=== PATIENT | female | born 1975 | race Caucasian/White ===

== ENCOUNTER 2022-05-01 12:21 | Emergency (ER) | payer BC ==
[2022-05-01 12:34] VITALS: BP 104/69; PULSE 69; RESP 20; TEMP 98.1
--- NOTE | 2022-05-01 13:48 | ED ---
General Adult HPI - General Chief complaint: Recheck/Abnormal Lab/Rx Stated complaint: post op-abd pain Time Seen by Provider: 05/01/22 13:19 Source: patient Mode of arrival: ambulatory Limitations: no limitations - History of Present Illness Initial comments: Patient is a 47-year-old female presents the emergency room with complaints of sore throat and epigastric fullness with nausea. She denies any vomiting. She reports that she had workup completed by her primary care provider which showed a stable ultrasound of her throat and an upper GI study showing LAP-BAND in place with esophageal stoma narrowing causing her reflux. Her LAP- BAND was placed by Dr. Navarro. She contacted their office and she will schedule an appointment for tomorrow however she presented to the emergency room today as her stomach fullness and sore throat pain are significant. She reports having to have her LAP-BAND volume adjusted previously but has had not had any complications in many years. With the exception of GERD she has no other significant past medical history. She has been taking a PPI as prescribed by her primary care provider. - Related Data Allergies Allergy/AdvReac Type Severity Reaction Status Date / Time No Known Allergies Allergy Verified 05/01/22 12:35 Review of Systems ROS Statement: Those systems with pertinent positive or pertinent negative responses have been documented in the HPI. ROS Other: All systems not noted in ROS Statement are negative. Past Medical History Past Medical History: GERD/Reflux Additional Past Medical History / Comment(s): insomnia History of Any Multi-Drug Resistant Organisms: None Reported Past Surgical History: Tubal Ligation Additional Past Surgical History / Comment(s): lap band Past Psychological History: No Psychological Hx Reported Smoking Status: Never smoker Past Alcohol Use History: None Reported Past Drug Use History: None Reported General Exam Limitations: no limitations General appearance: alert, in no apparent distress Head exam: Present: atraumatic, normocephalic, normal inspection Eye exam: Present: normal appearance, PERRL, EOMI. Absent: scleral icterus, conjunctival injection, periorbital swelling ENT exam: Present: normal exam, mucous membranes moist Neck exam: Present: normal inspection Respiratory exam: Absent: respiratory distress, accessory muscle use GI/Abdominal exam: Present: soft, distended. Absent: tenderness, guarding, rebound, rigid Rectal exam: Present: deferred Extremities exam: Present: normal inspection. Absent: pedal edema, joint swelling Back exam: Present: normal inspection Neurological exam: Present: alert, oriented X3, CN II-XII intact Psychiatric exam: Present: normal affect, normal mood Skin exam: Present: warm, dry, intact, normal color. Absent: rash Course Vital Signs 05/01/22 12:28 Temperature 98.1 F Pulse Rate 69 Respiratory 20 Rate Blood Pressure 104/69 O2 Sat by Pulse 100 Oximetry Medical Decision Making - Medical Decision Making Recent ultrasound and upper GI studies. No indication for other testing at this time. No indication for laboratory studies in the setting of lack of infectious process and vomiting. Dr. Ohara and notified of patient's presenting to the emergency department. He reports that he will see the patient in the emergency room for fluid removal from her lap band. She denies any anti-medics or analgesic needs at this time. Patient tolerated removal of fluid from lap band well by Dr. Ohara and is tolerating food and fluid intake orally without any nausea or vomiting. Will discharge home with follow-up with her primary care provider and Dr. Ohara per his recommendations. Case discussed with Dr. Butler. Disposition Clinical Impression: Gastric reflux, Hx of laparoscopic gastric banding Disposition: HOME SELF-CARE Condition: Stable Instructions (If sedation given, give patient instructions): GERD (Gastroesophageal Reflux Disease) in Children (ED) Additional Instructions: Please follow-up with Dr. Ohara and your primary care provider. Continue to progress diet as tolerated. Continue taking heartburn medication as prescribed by her primary care provider. Please return to the Emergency Department if symptoms worsen or any other concerns. Is patient prescribed a controlled substance at d/c from ED?: No Referrals: Nonstaff,Physician [Primary Care Provider] - 1-2 days Time of Disposition: 14:31
--- NOTE | 2022-05-01 14:37 | P.GSCN ---
History of Present Illness Consult date: 05/01/22 History of present illness: CHIEF COMPLAINT: Dysphagia HISTORY OF PRESENT ILLNESS: This is a 47-year-old female with a known history of lap band placed in 2008. She had a 70 pound weight loss. Patient has been having reflux symptoms and dysphagia. Patient had an upper GI showing lap band in place with esophageal stoma narrowing causing her reflux. Patient complaining of stomach fullness. She denies any nausea or vomiting. Patient seen in ER with Dr. gunter. PAST MEDICAL HISTORY: See list. PAST SURGICAL HISTORY: See list. MEDICATIONS: See list. ALLERGIES: See list. SOCIAL HISTORY: No illicit drug use. REVIEW OF SYSTEMS: CONSTITUTIONAL: Denies fever or chills. HEENT: Denies blurred vision, vision changes, or eye pain. Denies hemoptysis CARDIOVASCULAR: Denies chest pain or pressure. RESPIRATORY: No shortness of breath. GASTROINTESTINAL: See HPI for pertinent findings HEMATOLOGIC: Denies bleeding disorders. GENITOURINARY: Denies any blood in urine or increased urinary frequency. SKIN: Denies pruitis. Denies rash. PHYSICAL EXAM: VITAL SIGNS: Reviewed GENERAL: Well-developed in no acute distress. HEENT: No sclera icterus. Extraocular movements grossly intact. Moist buccal mucosa. Head is atraumatic, normocephalic. No nasal drainage. ABDOMEN: Soft. Nondistended. NEUROLOGIC: Alert and oriented. Cranial nerves II through XII grossly intact. LABORATORY DATA: No labs IMAGING: ASSESSMENT: 1. Dysphagia and reflux 2. History of lap band procedure PLAN: -Patient had 5.5 mL removed from lap band by Dr. gunter in the ER -Patient tolerated drinking water -We'll have nurse give patient an applesauce. If patient tolerates drinking and eating applesauce she can be discharged from surgical standpoint. -Patient to [facility]-up [facility] 2 weeks Physician Wedding Decorator note has been reviewed by physician. Signing provider agrees with the documented findings, assessment, and plan of care. Past Medical History Past Medical History: GERD/Reflux Additional Past Medical History / Comment(s): insomnia History of Any Multi-Drug Resistant Organisms: None Reported Past Surgical History: Tubal Ligation Additional Past Surgical History / Comment(s): lap band Past Psychological History: No Psychological Hx Reported Smoking Status: Never smoker Past Alcohol Use History: None Reported Past Drug Use History: None Reported Medications and Allergies Allergies Allergy/AdvReac Type Severity Reaction Status Date / Time No Known Allergies Allergy Verified 05/01/22 12:35 Surgical - Exam Vital Signs Temp Pulse Resp BP Pulse Ox 98.1 F 69 20 104/69 100 05/01/22 12:28 05/01/22 12:28 05/01/22 12:28 05/01/22 12:28 05/01/22 12:28
== END 2022-05-01 14:45 | disposition home or self-care (01) ==
LOC: EC 12:21
DX: K21.9 Gastro-esophageal reflux disease without esophagitis (principal); Z98.84 Bariatric surgery status
CPT/HCPCS: 99283; 99284

== ENCOUNTER → 2022-08-05 | Outpatient (CLI) | payer BC ==
[2022-08-05 13:21] VITALS: BP 123/82; PULSE 86; TEMP 97.8; BMI 38.3
--- NOTE | 2022-08-05 13:36 | P.HPBAR ---
Bariatric H&P - History & Physicial H&P Date: 08/05/22 History & Physicial: Visit/CC: lap band follow up Patient initial contact: Initial weight: Initial weight in pounds: Height: 5 ft 5.5 in Initial BMI: Last weight: Current weight: 106.141 kg Current weight in pounds: 234.00 Current BMI: 38.3 [place] body weight (based on NIH guidelines): 57.833 kg Excess body weight loss: The patient is a 47 year-old F who presents for Bariatric Assessment. This a 47-year-old female who had her LAP-BAND emptied April. The patient wishes convert sleeve gastrectomy. She's had chronic issues with dysphagia and GERD with her LAP-BAND. She is unable tolerate a fill. Past Medical History Past Medical History: GERD/Reflux Additional Past Medical History / Comment(s): insomnia History of Any Multi-Drug Resistant Organisms: None Reported Past Surgical History: Tubal Ligation Additional Past Surgical History / Comment(s): lap band Smoking Status: Never smoker Surgical - Exam Vital Signs Temp Pulse BP 97.8 F 86 123/82 08/05/22 13:17 08/05/22 13:17 08/05/22 13:17 - General well developed, well nourished, no distress - Eyes PERRL - ENT normal pinna - Neck no masses - Respiratory normal expansion - Cardiovascular Rhythm: regular - Abdomen Abdomen: soft, non tender Bariatric Assessment & Plan Plan: Dysphagia and GERD with LAP-BAND. Patient's band will not be adjusted. We will attempt to obtain insurance authorization for conversion sleeve gastrectomy due to chronic dysphagia and GERD. Bariatric Checklist Checklist: Plan: Checklist: EGD: 1. Hiatal hernia: 2. H. Pylori: HgbA1c: Vitamin D: Smoking: Primary care physician referral: Psychiatry clearance: Cardiology clearance: Sleep study: Diet journal: VTE risk score: VTE risk level: Rehab needs at discharge:
== END ==
LOC: BARWHC3 12:59
PROVIDERS: ATTEND Surgery
DX: Z09 Encounter for follow-up examination after completed treatment for conditions other than malignant neoplasm (principal); Z98.84 Bariatric surgery status; E66.01 Morbid (severe) obesity due to excess calories; Z68.38 Body mass index [BMI] 38.0-38.9, adult
CPT/HCPCS: 99211

== ENCOUNTER 2022-11-25 07:50 | Observation (INO) | payer BC ==
[~2022-11-25 07:50] MED LIST: DEXAMETHASONE SOD PHOSPHATE 4 MG/ML 1 ML VIAL IV ONE; ENOXAPARIN 40 MG/0.4 ML SYRINGE SQ PRN; LACTATED RINGERS 1,000 ML IV SCH; LIDOCAINE 1% (10MG/ML) FOR IV START INTRADERMA PRN; SCOPOLAMINE 1 MG/72 HR PATCH TRANSDERM ONE
[2022-11-25] MEDS: ONDANSETRON 4 MG/2 ML VIAL IVP PRN ×2 (08:52→12:32)
--- NOTE | 2022-11-25 10:17 | P.GSHP ---
History of Present Illness H&P Date: 11/25/22 Chief Complaint: GERD, dysphagia, morbid obesity This is a 47-year-old female who presents today for removal of LAP-BAND conversion to sleeve gastrectomy. Patient's had issues with chronic dysphagia and GERD related to her LAP-BAND. Past Medical History Past Medical History: GERD/Reflux Additional Past Medical History / Comment(s): insomnia History of Any Multi-Drug Resistant Organisms: None Reported Past Surgical History: Bariatric Surgery, Tubal Ligation Additional Past Surgical History / Comment(s): lap band Past Anesthesia/Blood Transfusion Reactions: No Reported Reaction Past Psychological History: No Psychological Hx Reported Smoking Status: Never smoker Past Alcohol Use History: Occasional Past Drug Use History: None Reported - Past Family History Mother Family Medical History: Coronary Artery Disease (CAD), Diabetes Mellitus, Hypertension Additional Family Medical History / Comment(s): CABG Father Family Medical History: Coronary Artery Disease (CAD), Diabetes Mellitus, Hypertension Additional Family Medical History / Comment(s): CABG Medications and Allergies Home Medications Medication Instructions Recorded Confirmed Type FLUoxetine HCL [PROzac] 10 mg PO DAILY 11/11/22 11/18/22 History Zolpidem [Ambien] 5 mg PO HS PRN 11/11/22 11/18/22 History Allergies Allergy/AdvReac Type Severity Reaction Status Date / Time No Known Allergies Allergy Verified 11/18/22 11:01 Surgical - Exam Vital Signs Temp Pulse Resp BP Pulse Ox 97 F L 73 20 132/90 97 11/25/22 08:25 11/25/22 08:25 11/25/22 08:25 11/25/22 08:25 11/25/22 08:25 - General well developed, well nourished, no distress - Eyes PERRL - Neck no masses - Respiratory normal expansion - Cardiovascular Rhythm: regular - Abdomen Abdomen: soft, non tender - Genitourinary normal external genitalia - Rectum Rectum: normal sphincter tone - Integumentary no rash - Neurologic normal coordination, normal sensation Assessment and Plan Assessment: Dysphagia due to LAP-BAND system. Morbid obesity, BMI 38. We'll perform removal of LAP-BAND conversion to sleeve gastrectomy.
[2022-11-25] MEDS ORDERED: PHENYLEPHRINE-0.9% NACL SYG 1,000 MCG/10 ML SYRINGE ONE (10:35)
[2022-11-25] MEDS ORDERED: LIDOCAINE 2% INJ 20 MG/ML (2 ML VIAL) ONE (10:35)
[2022-11-25] MEDS ORDERED: fentaNYL (PF) 50 MCG/ML 2 ML AMP ONE (10:35)
[2022-11-25] MEDS ORDERED: GLYCOPYRROLATE 0.2 MG/ML 2 ML VIAL ONE (10:35)
[2022-11-25] MEDS ORDERED: PROPOFOL 10 MG/ML 20 ML VIAL IV ONE (10:35)
[2022-11-25] MEDS ORDERED: ROCURONIUM 10 MG/ML (5 ML VIAL) IV ONE (10:35)
[2022-11-25] MEDS ORDERED: KETAMINE 10 MG/ML 20 ML VIAL ONE (10:35)
[2022-11-25] MEDS ORDERED: MIDAZOLAM 2 MG/2 ML VIAL ONE (10:35)
[2022-11-25] MEDS ORDERED: NEOSTIGMINE 1 MG/ML 10 ML VIAL ONE (10:35)
[2022-11-25] MEDS ORDERED: BUPIVACAIN-EPI 0.25%-1:200,000 30 ML VIAL SQ ONE (11:08)
[2022-11-25] MEDS ORDERED: LACTATED RINGERS 1,000 ML IV ONE (12:01)
--- NOTE | 2022-11-25 12:19 | P.OP ---
Date of Procedure: 11/25/22 Preoperative Diagnosis: Morbid obesity Postoperative Diagnosis: Morbid obesity, BMI 37 Procedure(s) Performed: Laparoscopic removal of LAP-BAND device Laparoscopic sleeve gastrectomy Anesthesia: DEACON Surgeon: Wyatt Ohara Estimated Blood Loss (ml): 25 Pathology: other (Stomach) Condition: stable Disposition: PACU Description of Procedure: The patient was placed on the operating room table in the supine position. She received general anesthesia and then was placed in dorsal lithotomy position. Her abdomen was prepped and draped in sterile fashion. The skin incision sites were anesthetized 1% local Xylocaine. And then the skin was incised with an 11 blade in the left lateral position. Using a blade less trocar under direct visualization the peritoneal cavity was entered. The abdomen was insufflated and then a 5 mm laparoscope was placed into the peritoneal cavity. A 5 mm trocar was placed in the right epigastric, and right lateral position. A 15 mm trocar was placed in the supra-umbilical position and another 5 mm trocar was placed in the left lateral position. The LAP-BAND port was then dissected free and sent to pathology. The LAP-BAND device was then dissected free from around stomach the anterior gastric wall plication was taken down with sharp dissection. The LAP-BAND device and cut and withdrawn from around stomach. Care was taken to identify and preserve the gastric wall. There was no injury to the stomach was seen. The left lateral lobe of the liver was retracted. The stomach was visualized. The greater curvature of the stomach was then dissected using the Harmonic scissors. The dissection occurred approximately 5 cm from the pylorus to the level of the left omid. There was no hiatal hernia seen. At this point a 40- Malay bougie dilator was placed the oropharynx and passed into the esophagus and into the stomach by the STRATIGRAPHER. The sleeve gastrectomy was performed by using the powered echelon stapler with a seam guard buttress material. Sequential firings of the stapler were performed. The gastric remnant was then brought out through the 15 mm trocar site. The dilator was withdrawn. And a orogastric tube was replaced into the stomach. The stomach was insufflated with 200 mL of methylene blue normal saline. There was no evidence of extravasation. The abdomen was irrigated there is no bleeding seen. The Vasiliy-Sheridan device was used to close the 15 mm trocar with 0 Vicryl. Skin was closed with interrupted 3-0 Monocryl sutures once the trochars withdrawn. Dermabond dressing was applied. Patient was sent to recovery in stable condition.
[2022-11-25] MEDS ORDERED: SIMETHICONE 40 MG/0.6 ML DROPS 2,000 MG/30 ML BOTTLE PO PRN (12:20)
[2022-11-25] MEDS ORDERED: NALOXONE 0.4 MG/ML 1 ML VIAL IV PRN (12:20)
[2022-11-25] MEDS ORDERED: diphenhydrAMINE 50 MG/ML 1 ML VIAL IVP PRN (12:20)
[2022-11-25] MEDS ORDERED: HYDROmorphone 1 MG/ML 1 ML SYRINGE IVP PRN (12:20)
[2022-11-25] MEDS ORDERED: ACETAMINOPHEN IV (For NPO) 1,000 MG in EMPTY BAG 1 BAG IVPB ONE (12:20)
[2022-11-25] MEDS: HYDROmorphone 0.5 MG/0.5 ML SYRINGE IVP PRN ×5 (12:32→21:20)
[2022-11-25] MEDS: 0.9% NACL WITH KCL 20 MEQ/L 1,000 ML IV SCH ×3 (13:47→23:27)
[2022-11-25] MEDS: ALBUTEROL HFA INHALER INHALATION SCH ×2 (15:52→20:28)
[2022-11-25] MEDS ORDERED: ALBUTEROL NEBULIZED 2.5 MG/3 ML INHALATION SCH (16:00)
[2022-11-25] MEDS: KETOROLAC 15 MG/ML 1 ML VIAL IVP SCH ×2 (17:46→23:27)
[2022-11-25] MEDS: ENOXAPARIN 40 MG/0.4 ML SYRINGE SQ SCH (23:29)
--- NOTE | 2022-11-25 23:45 | P.CONS ---
History of Present Illness - Reason for Consult Consult date: 11/25/22 Medical management - Chief Complaint Status post sleeve gastrectomy - History of Present Illness Patient is a 47-year-old female with known history of GERD, depression and obesity with a BMI 37.6 and prior history of bariatric surgery was admitted to the hospital for removal of lap band, conversion to sleeve gastrectomy. Patient tolerated the procedure very well. Currently transferred to medical floor. Denies any complaints of chest pain or shortness of breath. No nausea or vomiting. Pain is controlled. No cough or sputum production. Postoperatively blood pressure 97/62 pulse 74 and pulse ox 92% on room air. Laboratory data is not anticoagulant this time. Review of Systems Constitutional: Patient denies any fever or chills . no Generalized weakness. Abdomen: Patient denied any nausea or vomiting or abd. pain Cardiovascular: Patient denies any chest pain or short of breath no palpitations. Respiratory: patient denied any cough . no sputum production. No shortness of breath Neurologic: Patient denied any numbness or tingling headache. Musculoskeletal: Patient denies any complaints of joint swelling or deformity. Skin: Negative Psychiatric: Negative Endocrine: No heat or cold intolerance. No recent weight gain. Genitourinary: No dysuria or hematuria. All other 14 point ROS negative except the above Past Medical History Past Medical History: GERD/Reflux Additional Past Medical History / Comment(s): insomnia History of Any Multi-Drug Resistant Organisms: None Reported Past Surgical History: Bariatric Surgery, Tubal Ligation Additional Past Surgical History / Comment(s): lap band Past Anesthesia/Blood Transfusion Reactions: No Reported Reaction Past Psychological History: No Psychological Hx Reported Smoking Status: Never smoker Past Alcohol Use History: Occasional Past Drug Use History: None Reported - Past Family History Mother Family Medical History: Coronary Artery Disease (CAD), Diabetes Mellitus, Hypertension Additional Family Medical History / Comment(s): CABG Father Family Medical History: Coronary Artery Disease (CAD), Diabetes Mellitus, Hypertension Additional Family Medical History / Comment(s): CABG Medications and Allergies Home Medications Medication Instructions Recorded Confirmed Type FLUoxetine HCL [PROzac] 10 mg PO DAILY 11/11/22 11/18/22 History Zolpidem [Ambien] 5 mg PO HS PRN 11/11/22 11/18/22 History Allergies Allergy/AdvReac Type Severity Reaction Status Date / Time No Known Allergies Allergy Verified 11/18/22 11:01 Physical Exam Vitals: Vital Signs Temp Pulse Resp BP Pulse Ox 11/25/22 13:31 60 16 125/62 100 11/25/22 13:20 62 16 127/61 100 11/25/22 13:05 63 16 141/68 11/25/22 12:49 65 16 140/65 100 11/25/22 12:34 64 16 122/58 100 11/25/22 12:19 97.4 F L 77 16 134/67 100 11/25/22 08:25 97 F L 73 20 132/90 97 Intake and Output 11/24/22 11/25/22 11/25/22 22:59 06:59 14:59 Intake Total 1850 Output Total 25 Balance 1825 Intake: IV 1850 Output: Estimated Blood Loss 25 Other: Weight 102.4 kg PHYSICAL EXAMINATION: Patient is lying in the bed comfortably, no acute distress, awake alert and oriented.. HEENT: Normocephalic. Neck is supple. Pupils reactive. Nostrils clear. Oral cavity is moist. Neck reveals no JVD, carotid bruits, or thyromegaly. CHEST EXAMINATION: Trachea is central. Symmetrical expansion. Lung yeh clear to auscultation and percussion. CARDIAC: Normal S1, S2 with no gallops. No murmurs ABDOMEN: Soft. Bowel sounds present. Nontender. No organomegaly. No abdominal bruits. Extremities: reveal no edema. No clubbing or cyanosis Neurologically awake, alert, oriented x3 with well-coordinated movements. No focal deficits noted Skin: No rash or skin lesions. Psychiatric: Coperative. Nonsuicidal, Musculoskeletal: No joint swelling or deformity. Normal range of motion. Assessment and Plan Assessment: S/p laparoscopic conversion to sleeve gastrectomy. Postoperative day 0 History of bariatric surgery with lap band Anxiety/depression and insomnia GERD Obesity BMI 37.6 DVT prophylaxis currently on Lovenox subcu every 12 Plan: Patient will be continued on IV hydration and started on bariatric clear liquid diet. Pain management and DVT prophylaxis Encourage incentive spirometry. Monitor blood pressure closely. Follow-up CBC and BMP tomorrow. Further recommendations based on the clinical course. Thank you for your consult. Time with Patient: Greater than 30
[2022-11-26] MEDS: HYDROmorphone 0.5 MG/0.5 ML SYRINGE IVP PRN ×2 (02:04→09:13)
[2022-11-26] MEDS: KETOROLAC 15 MG/ML 1 ML VIAL IVP SCH ×2 (05:59→12:28)
[2022-11-26] MEDS ORDERED: 1: THIAMINE 100 MG, FOLIC ACID 1 MG in 0.9% NACL WITH KCL 20 MEQ/L 1,000 ML 2: 0.9% NAC IVPB SCH (08:00)
[2022-11-26 08:36] VITALS: BP 111/76; PULSE 60; RESP 17; TEMP 98.5
[2022-11-26] MEDS: ACETAMINOPHEN IV (For NPO) 1,000 MG in EMPTY BAG 1 BAG IVPB SCH ×2 (08:53→12:27)
[2022-11-26] MEDS: ENOXAPARIN 40 MG/0.4 ML SYRINGE SQ SCH (08:54)
[2022-11-26] MEDS ORDERED: FLUoxetine HCL 10 MG CAP PO SCH (09:00)
[2022-11-26] MEDS ORDERED: PANTOPRAZOLE 40 MG/10 ML VIAL IV SCH (09:00)
[2022-11-26] MEDS ORDERED: MULTIVITAMINS, THERA 1 EACH TAB PO SCH (09:00)
[2022-11-26] MEDS: ALBUTEROL HFA INHALER INHALATION SCH ×2 (09:11→12:09)
[2022-11-26 09:13] LABS: Basophils # (A) 0.01 X 10*3/uL (0.00-0.10); Basophils % (A) 0.1 %; Eosinophils # (A) 0 X 10*3/uL (0.04-0.35); Eosinophils % (A) 0 %; Immature Grans, Automated 0.4 %; Lymphocytes # (A) 1.48 X 10*3/uL (0.90-5.00); Lymphocytes % (A) 17.8 %; MCH 30.1 pg (27.0-32.0); MCHC 32.4 g/dL (32.0-37.0); MCV 92.9 fL (80.0-97.0); Mean Platelet Volume 11.4 fL (9.5-12.2); Monocytes # (A) 0.53 X 10*3/uL (0.20-1.00); Monocytes % (A) 6.4 %; NRBC Per 100 WBC 0 /100 WBCS (0.0-0.0); Neutrophils # (A) 6.25 X 10*3/uL (1.80-7.70); Neutrophils % (A) 75.3 %; Platelet Count 262 X 10*3/uL (140-440); RBC 3.66 X 10*6/uL (4.10-5.20); RDW 13.1 % (11.5-14.5)
[2022-11-26 09:33] LABS: African American GFR (CKD) 117.9 (60.0-200.0); Anion Gap 12.6 mmol/L (10.00-18.00); BUN/Creat Ratio 17.43 Ratio (12.00-20.00); Blood Urea Nitrogen 12.2 mg/dL (9.0-27.0); Calcium 8.9 mg/dL (8.7-10.3); Carbon Dioxide 20.4 mmol/L (20.0-27.5); Magnesium 1.8 mg/dL (1.5-2.4); Non-African American GFR(CKD) 101.7 (60.0-200.0); Phosphorus 3.3 mg/dL (2.4-5.1); Potassium 4.7 mmol/L (3.5-5.5)
--- NOTE | 2022-11-26 10:28 | P.DS ---
Providers Expected date of discharge: 11/26/22 Attending physician: Wyatt Ohara Consults: 11/25/22 12:20 Consult Physician Routine Consulting Provider: Nabila Miller Consult Reason/Comments: Medical management Do you want consulting provider notified?: Yes Primary care physician: Stated None Hospital Course: Discharge diagnosis 1. Morbid obesity Hospital course This is a 47-year-old female with a known history of morbid obesity. She is status post lap is Removal of lap band device and laparoscopic Sleeve gastrectomy. Patient reports that her pain is controlled. She is tolerating liquids. Denies any nausea or vomiting. She has been up and ambulating. She is having flatus. She is afebrile. She is stable for discharge. Please refer to chart for any further details. Physician Agate Setter note has been reviewed by physician. Signing provider agrees with the documented findings, assessment, and plan of care. Patient Condition at Discharge: Stable Plan - Discharge Summary Discharge Rx Participant: Yes New Discharge Prescriptions: New bisacodyL [Dulcolax] 5 mg PO DAILY PRN #10 tab PRN Reason: Constipation Simethicone 40 mg/0.6 ml Drops [Mylicon Drops] 40 mg PO PCHS PRN #30 ml PRN Reason: Gas Ondansetron Odt [Zofran Odt] 4 mg PO Q8HR PRN #9 tab PRN Reason: Nausea Omeprazole [PriLOSEC] 40 mg PO DAILY #30 cap HYDROcodone/APAP 5-325MG [[place] 5-325] 1 tab PO Q6HR PRN 2 Days #5 tab PRN Reason: Pain Continue Zolpidem [Ambien] 5 mg PO HS PRN PRN Reason: Insomnia FLUoxetine HCL [PROzac] 10 mg PO DAILY Discharge Medication List FLUoxetine HCL [PROzac] 10 mg PO DAILY 11/11/22 [History] Zolpidem [Ambien] 5 mg PO HS PRN 11/11/22 [History] HYDROcodone/APAP 5-325MG [[place] 5-325] 1 tab PO Q6HR PRN 2 Days #5 tab 11/26/22 [Rx] Omeprazole [PriLOSEC] 40 mg PO DAILY #30 cap 11/26/22 [Rx] Ondansetron Odt [Zofran Odt] 4 mg PO Q8HR PRN #9 tab 11/26/22 [Rx] Simethicone 40 mg/0.6 ml Drops [Mylicon Drops] 40 mg PO PCHS PRN #30 ml 11/26/22 [Rx] bisacodyL [Dulcolax] 5 mg PO DAILY PRN #10 tab 11/26/22 [Rx] [facility]ment([facility] [facility] [place] [place] [facility] [place] [facility] Patient Instructions/Handouts: *Surgery [facility] - Scopalamine Patch Instructions Activity/Diet/Wound Care/Special Instructions: No driving while taking [place] No lifting over 10 pounds Shower daily. No soaking or tub baths for 2 weeks Very light activity until you are reevaluated at your follow up appointment with your surgeon No straws or carbonated beverages Continue liquid diet Discharge Disposition: HOME SELF-CARE
[2022-11-26 14:18] VITALS: BMI 37.5
--- NOTE | 2022-11-26 20:50 | P.PN ---
Subjective Progress Note Date: 11/26/22 Reason for Consult Consult date: 11/25/22 Medical management - Chief Complaint Status post sleeve gastrectomy - History of Present Illness Patient is a 47-year-old female with known history of GERD, depression and obesity with a BMI 37.6 and prior history of bariatric surgery was admitted to the hospital for removal of lap band, conversion to sleeve gastrectomy. Patient tolerated the procedure very well. Currently transferred to medical floor. Denies any complaints of chest pain or shortness of breath. No nausea or vomiting. Pain is controlled. No cough or sputum production. Postoperatively blood pressure 97/62 pulse 74 and pulse ox 92% on room air. Laboratory data is not anticoagulant this time. 11/26/2022 Patient is seen in follow up today and has just returned from walking the unit multiple times. Patient reports some bloating and tolerating clear liquid diet. Denies nausea or vomiting. Has incentive spirometer at the bedside and has been using frequently she reports. Patient is afebrile and denies chest pain or shortness of breath other than some mild chest and abdomen discomfort with position changes. Recommend abdominal binder. Encouraged increased activity as tolerated. Patient reports she may go home today. Review of systems: Constitutional: No reports of fatigue, fever, or chills Cardiovascular: No reports of chest pain or palpitations Respiratory: No reports of shortness of breath or cough GI: No reports of nausea, vomiting, or diarrhea, reports no gas or bowel movemen t. patient reports bloating : No reports of dysuria or retention Neurovascular: no reports of weakness Physical exam: Patient is lying in the bed comfortably, no acute distress, awake alert and oriented.. HEENT: Normocephalic. Neck is supple. Pupils reactive. Nostrils clear. Oral cavity is moist. Neck reveals no JVD, carotid bruits, or thyromegaly. CHEST EXAMINATION: Trachea is central. Symmetrical expansion. Lung yeh clear to auscultation and percussion. CARDIAC: Normal S1, S2 with no gallops. No murmurs ABDOMEN: Soft. Bowel sounds present. Nontender. No organomegaly. No abdominal bruits. Extremities: reveal no edema. No clubbing or cyanosis Neurologically awake, alert, oriented x3 with well-coordinated movements. No focal deficits noted Skin: No rash or skin lesions. Psychiatric: Cooperative. Non-suicidal, Musculoskeletal: No joint swelling or deformity. Normal range of motion. Assessment: S/p laparoscopic conversion to sleeve gastrectomy. Postoperative day 1 History of bariatric surgery with lap band Anxiety/depression and insomnia GERD Obesity BMI 37.6 DVT prophylaxis currently on Lovenox subcu every 12 Plan: Patient has been on continued on IV hydration and bariatric clear liquid diet. Tolerating Patient reports not passing gas or having bowel movement Pain management and DVT prophylaxis per surgery Encourage incentive spirometry use at least 10 times per hour while awake. Encouraged patient to bring home Patient is medically stable and will be discharged later today Thank you kindly for this consultation and we will continue to follow during hospitalization The impression and plan of care has been dictated by Silvia Christine, Nurse Practitioner as directed. Dr. Dank MD I have performed a history and examination and MDM of this patient, discussed the same with the dictator, and agree with the dictator's assessment and plan as written ,documented as a scribe. Based on total visit time, I have performed more than 50% of the visit. Objective - Vital Signs Vital signs: Vital Signs Temp 98.5 F 11/26/22 08:15 Pulse 60 11/26/22 08:15 Resp 17 11/26/22 08:15 BP 111/76 11/26/22 08:15 Pulse Ox 100 11/26/22 09:11 FiO2 Intake & Output 11/25/22 11/26/22 11/26/22 18:59 06:59 18:59 Intake Total 1850 Output Total 25 Balance 1825 Weight 102.4 kg Intake: IV 1850 Output: Estimated Blood Loss 25 Other: # Voids 0 1 - Labs CBC & Chem 7: 11/26/22 04:16 11/26/22 04:16 Labs: Abnormal Lab Results - Last 24 Hours (Table) 11/26/22 Range/Units 04:16 RBC 3.66 L (4.10-5.20) X 10*6/uL Hgb 11.0 L (12.0-15.0) g/dL Hct 34.0 L (37.2-46.3) % Eosinophils # 0 L (0.04-0.35) X 10*3/uL
== END 2022-11-26 14:27 | disposition home or self-care (01) ==
LOC: OR 07:50 → 4SSUR 12:07 → OR 11-26 06:48 → 4SSUR 11-26 14:27 → OR 11-26 14:27
PROVIDERS: ADMIT Surgery; ATTEND Surgery
DX: Z45.89 Encounter for adjustment and management of other implanted devices (principal); E66.01 Morbid (severe) obesity due to excess calories; Z68.37 Body mass index [BMI] 37.0-37.9, adult; K31.7 Polyp of stomach and duodenum; K29.50 Unspecified chronic gastritis without bleeding; G47.00 Insomnia, unspecified; K21.9 Gastro-esophageal reflux disease without esophagitis; Z98.84 Bariatric surgery status; Z98.51 Tubal ligation status; Z83.3 Family history of diabetes mellitus; Z82.49 Family history of ischemic heart disease and other diseases of the circulatory system; Z79.899 Other long term (current) drug therapy
CPT/HCPCS: 43774; 94640 ×4; 94760; 97161; 97165; 80048; 83735; 84100; 85025; 88307; G0378; J2250; J1100; J2710; J0690 ×2; J2405; J1650 ×2; J3010; J1170 ×3; J0131; J1885 ×2; J2370; J2704; C9113; J2001

== ENCOUNTER → 2022-11-29 | Outpatient (CLI) | payer BC ==
[2022-11-29 10:55] VITALS: BP 113/77; PULSE 81; TEMP 97.9; BMI 36.3
== END ==
LOC: BARWHC3 10:36
PROVIDERS: ATTEND Surgery
DX: E66.01 Morbid (severe) obesity due to excess calories (principal)
CPT/HCPCS: 99211

== ENCOUNTER → 2022-12-30 | Outpatient (CLI) | payer BC ==
[2022-12-30 14:25] VITALS: BP 115/74; PULSE 68; TEMP 98.1; BMI 34.4
--- NOTE | 2022-12-30 15:51 | P.HPBAR ---
Bariatric H&P - History & Physicial H&P Date: 12/30/22 History & Physicial: Visit/CC: sleeve F/U Patient initial contact: Initial weight: Initial weight in pounds: Height: 5 ft 5.5 in Initial BMI: Last weight: Current weight: 95.254 kg Current weight in pounds: 210.00 Current BMI: 34.4 [place] body weight (based on NIH guidelines): 57.833 kg Excess body weight loss: The patient is a 47 year-old F who presents for Bariatric Assessment. Patient presents today for sleeve gastrectomy follow-up. She's had some minimal GERD. She's doing well. Past Medical History Past Medical History: GERD/Reflux Additional Past Medical History / Comment(s): insomnia History of Any Multi-Drug Resistant Organisms: None Reported Past Surgical History: Bariatric Surgery, Tubal Ligation Additional Past Surgical History / Comment(s): lap band- removed and conversion to gastric sleeve 11/25/22. Past Psychological History: No Psychological Hx Reported Smoking Status: Never smoker Past Alcohol Use History: None Reported Past Drug Use History: None Reported Surgical - Exam Vital Signs Temp Pulse BP 98.1 F 68 115/74 12/30/22 14:22 12/30/22 14:22 12/30/22 14:22 - General well developed, well nourished, no distress - Eyes PERRL - ENT normal pinna, normal nares - Neck no masses - Respiratory normal expansion - Cardiovascular Rhythm: regular - Abdomen Abdomen: soft, non tender Bariatric Assessment & Plan Plan: Status post sleeve gastrectomy. Patient's a well. She'll follow-up in 4 weeks. Bariatric Checklist Checklist: Plan: Checklist: EGD: 1. Hiatal hernia: 2. H. Pylori: HgbA1c: Vitamin D: Smoking: Primary care physician referral: Psychiatry clearance: Cardiology clearance: Sleep study: Diet journal: VTE risk score: VTE risk level: Rehab needs at discharge:
[2022-12-30 21:46] LABS: HCT 38.5 % (37.2-46.3); HGB 12.2 g/dL (12.0-15.0); MCHC 31.7 g/dL (32.0-37.0); MCV 94.6 fL (80.0-97.0); Mean Platelet Volume 12.4 fL (9.5-12.2); NRBC Per 100 WBC 0 /100 WBCS (0.0-0.0); Platelet Count 236 X 10*3/uL (140-440); RBC 4.07 X 10*6/uL (4.10-5.20); WBC 4.02 X 10*3/uL (4.50-10.00)
[2022-12-31 03:21] LABS: % Iron Saturation 14.66 (12.00-45.00); Magnesium 2.2 mg/dL (1.5-2.4)
[2022-12-31 03:26] LABS: African American GFR (CKD) 111.2 (60.0-200.0); Albumin 4.4 g/dL (3.8-4.9); Albumin/Globulin Ratio 1.55 (1.60-3.17); BUN/Creat Ratio 15.92 Ratio (12.00-20.00); Blood Urea Nitrogen 11.7 mg/dL (9.0-27.0); Calcium 9.5 mg/dL (8.7-10.3); Carbon Dioxide 19.9 mmol/L (20.0-27.5); Globulin 2.8 g/dL (1.6-3.3); Non-African American GFR(CKD) 95.9 (60.0-200.0); Potassium 4.6 mmol/L (3.5-5.5); Total Bilirubin 0.3 mg/dL (0.30-1.20); Total Protein 7.2 g/dL (6.2-8.2)
[2023-01-01 06:41] LABS: Vitamin A 44 ug/dL (38-106)
== END ==
LOC: BARWHC3 13:35
PROVIDERS: ATTEND Surgery
DX: E66.01 Morbid (severe) obesity due to excess calories (principal); K21.9 Gastro-esophageal reflux disease without esophagitis; Z68.34 Body mass index [BMI] 34.0-34.9, adult; Z98.84 Bariatric surgery status; D50.8 Other iron deficiency anemias; E44.0 Moderate protein-calorie malnutrition; E55.9 Vitamin D deficiency, unspecified; T56.894A Toxic effect of other metals, undetermined, initial encounter
CPT/HCPCS: 80053; 82306; 82607; 82728; 82746; 83540; 83550; 83735; 84255; 84425; 84443; 84590; 84630; 85027; 97803; 99211